=== PATIENT | female | born 1970 | race Caucasian/White ===

== ENCOUNTER 2022-03-28 13:51 | Emergency (ER) | payer OTHER ==
[2022-03-28 15:14] LABS: BASOPHIL 0.2 % (0-2); EOSINOPHIL 0.2 % (0-5); HCT 40.7 % (37.0-47.0); HGB 13.8 g/dl (12.5-16.0); LYMPHOCYTE 3.9 % (15-48); MCH 32.7 pg (25.0-31.0); MCHC 33.9 g/dL (32.0-36.0); MCV 96.4 fL (78.0-100.0); MONOCYTE 14.4 % (0-12); MPV 9.1 fL (6.0-9.5); NEUTROPHIL 80.9 % (41-80); NRBC 0; PLT 319 K/uL (150-400); RBC 4.22 M/uL (4.20-5.40); RDW 11.9 % (11.5-14.0); WBC 12.3 K/uL (4.0-10.5)
[2022-03-28 15:25] LABS: BUN 16 mg/dL (7-18); BUN/CREAT RATIO (CALC) 25.8 RATIO; CHLORIDE 100 mmol/L (98-107); CO2 (BICARBONATE) 25 mmol/L (21-32); CREATININE 0.62 mg/dL (0.51-0.95); GLUCOSE 129 mg/dL (74-106); POTASSIUM 2.9 mmol/L (3.5-5.1)
[2022-03-28] MEDS ORDERED: K-TAB ER20 MEQ PO (16:01)
== END 2022-03-28 16:30 | disposition home or self-care (01) ==
LOC: FER 13:51
PROVIDERS: Emergency Medicine
DX: E87.6 Hypokalemia (principal); Z88.0 Allergy status to penicillin; Z28.310 Unvaccinated for COVID-19
CPT/HCPCS: 36415; 80048; 83735; 85025; G0480; J2060